=== PATIENT | male | born 1980 | race Hispanic/Latino ===

== ENCOUNTER 2024-08-30 23:23 | Emergency (ER) | payer SELFPAY ==
--- NOTE | 2024-08-30 23:28 | ED.ABDPAIN ---
HPI - Abdominal Pain General Chief Complaint: Abdominal Pain Stated Complaint: abd pain Time Seen by Provider: 08/30/24 23:27 History of Present Illness HPI narrative: Patient is a 43-year-old male without any significant past medical history comes into the ED from home for evaluation of epigastric pain/right upper quadrant abdominal pain ongoing intermittent for the past 3 weeks. He states that eating does make it worse, states that after he eats it does last for a proximally 5-6 hours that it resolves. He states that he has not seen anybody for this, but due to persistent symptoms decided come into the ED for further evaluation treatment. He denies any other symptoms at this time. Related Data Previous Rx's ?Medication ?Instructions ?Recorded ondansetron 4 mg disintegrating 4 mg PO Q8H 5 days #15 tabs 08/31/24 tablet oxycodone-acetaminophen 5 mg-325 1 tab PO Q8H PRN pain 3 days #9 08/31/24 mg tablet (Percocet) tabs Allergies Allergy/AdvReac Type Severity Reaction Status Date / Time Iodinated Contrast Media Allergy Intermediate tachycardia Verified 08/30/24 23:30 Review of Systems Review of Systems Narrative: General: Denies fever, chills, weight loss HEENT: Denies headache, eye drainage, eye irritation, head trauma, sore throat, voice change Cardiovascular: Denies any chest pain, palpitations, tachycardia Respiratory: Denies any shortness of breath, cough, wheeze, stridor GI/: Positive epigastric/right upper quadrant abdominal pain denies, nausea, vomiting, diarrhea, bright red blood per rectum, melanotic stools, urinary frequency, urinary retention, dysuria, hematuria MSK: Denies any joint pain, muscle pains, swelling Skin: Denies any rashes, lesions, discoloration Neuro: Denies any headache, lightheadedness, dizziness, fainting, weakness Psych: Denies SI/HI Patient History Social History Smoking Status: Former smoker Exam Narrative Exam Narrative: General: Cooperative, well-developed, not in acute distress HEENT: Normocephalic, atraumatic, PERRLA, normal sclera, eyelids normal Neck: Active full range of motion, atraumatic Chest: Normal to inspection, negative crepitus, no overlying erythema ecchymosis Respiratory: Normal respiratory effort, not in acute respiratory distress, clear to auscultation bilaterally negative cough, wheeze, tachypnea, rhonchi, rales Cardiology: Regular rate rhythm negative gallop, murmur, rubs GI/: Very mild tenderness to palpation of the epigastric region, negative Balderas's sign, soft, non rigid, normal to inspection, exam deferred MSK: Full active range of motion in all 4 extremities, atraumatic, no tenderness to palpation of any bony prominences Skin: No rashes or lesions noted Neuro: Alert awake oriented x3, moves all 4 extremities spontaneously, cranial nerves intact, able to answer all questions appropriately follows commands appropriately Psych: Cooperative, negative suicidal or homicidal ideations Initial Vital Signs Initial Vital Signs: Vital Signs Temperature 97.8 F 08/30/24 23:32 Pulse Rate 78 08/30/24 23:32 Respiratory Rate 16 08/30/24 23:32 Blood Pressure 156/90 H 08/30/24 23:32 Pulse Oximetry 99 08/30/24 23:32 Oxygen Delivery Method Room Air 08/30/24 23:32 Course Orders Ordered: ED Orders 08/30/24 23:29 Urinalysis and Microscopic Stat 08/30/24 23:31 EKG-12 Lead Stat 08/30/24 23:36 Consult to [facility] [place] - Pharmacy Grad Intern Stat 08/30/24 23:43 CT abdomen pelvis wo con Stat US abdomen limited Stat 08/30/24 23:44 CXR [XR chest 1V] Stat EKG-12 Lead Stat 08/30/24 23:45 Complete Blood Count AUTO DIFF Stat Comprehensive Metabolic Panel Stat Lipase Stat MAG [Magnesium] Stat Troponin & CK Cardiac Panel Stat Ondansetron HCl (Ondansetron 4 Mg/2 Ml Inj) 4 mg IV NOW PRN PRN Reason: Nausea And Vomiting Ondansetron HCl (Ondansetron 4 Mg Odt) 4 mg PO NOW PRN PRN Reason: Nausea And Vomiting Discontinued Medications Famotidine (Famotidine 20 Mg/2 Ml Vial) 20 mg IV NOW ONE Stop: 08/30/24 23:45 Last Admin: 08/31/24 00:03 Dose: Not Given Documented By: KACIE Sodium Chloride (Normal Saline 0.9%) 1,000 mls @ 1,000 mls/hr IV BOLUS ONE Stop: 08/31/24 00:27 Last Admin: 08/31/24 00:01 Dose: Not Given Documented By: KACIE Ondansetron HCl (Ondansetron 4 Mg/2 Ml Inj) 4 mg IV NOW ONE Stop: 08/30/24 23:45 Last Admin: 08/31/24 00:03 Dose: Not Given Documented By: KACIE Vital Signs Vital signs: Vital Signs - 8 hr 08/30/24 23:32 08/30/24 23:46 08/30/24 23:47 Temperature 97.8 F Pulse Rate 78 102 H Respiratory Rate 16 Blood Pressure 156/90 H 142/80 H Pulse Oximetry 99 100 Oxygen Delivery Method Room Air 08/30/24 23:47 08/31/24 00:00 08/31/24 00:00 Temperature Pulse Rate 99 H 92 H Respiratory Rate Blood Pressure 153/94 H Pulse Oximetry 99 99 Oxygen Delivery Method 08/31/24 00:30 08/31/24 00:30 Temperature Pulse Rate 98 H Respiratory Rate 17 Blood Pressure 153/85 H Pulse Oximetry 97 Oxygen Delivery Method MDM - Abdominal Pain Differential Diagnosis Differential diagnosis: Likely other (ACS, pneumonia, cholelithiasis, cholecystitis, electrolyte abnormality) Lab Data 08/30/24 23:45 08/30/24 23:45 Labs: Lab Results 08/30/24 08/30/24 Range/Units 23:29 23:45 WBC 7.9 (4.5-11.0) X10^3/uL RBC 5.35 (4.5-5.9) X10^6/uL Hgb 16.2 (13.5-17.5) g/dL Hct 47.9 (41-53) % MCV 89.6 (80-100) fL MCH 30.3 (26-34) PG MCHC 33.8 (30-36) % RDW 13.3 (11.6-14.8) % Plt Count 247 (150-400) X10^3/uL Neut % (Auto) 54.1 (50-75) % Lymph % (Auto) 36.4 (25-40) % [place] % (Auto) 7.3 (3-14) % Eos % (Auto) 1.8 L (2-4) % Baso % (Auto) 0.4 (0-2) % Neut # (Auto) 4300 (4879-9260) /uL Lymph # (Auto) 2900 (0870-9213) /uL [place] # (Auto) 600 (0-900) /uL Eos # (Auto) 100 (0-450) /uL Baso # (Auto) 0 (0-100) /uL Sodium 142 (137-145) mmol/L Potassium 4.2 (3.4-5.1) mmol/L Chloride 100 (98-107) mmol/L Carbon Dioxide 31 (22-32) mmol/L BUN 14 (9-20) mg/dL Creatinine 1.03 (0.66-1.25) mg/dL Estimated GFR > 60 (>60) mL/min BUN/Creatinine Ratio 13.6 (6-22) Glucose 116 H (70-99) mg/dL Calcium 9.9 (8.4-10.2) mg/dL Magnesium 2.3 (1.6-2.3) mg/dL Total Bilirubin 0.4 (0.2-1.3) mg/dL AST 24 (17-59) IU/L ALT 24 (<50) IU/L Alkaline Phosphatase 64 (38-126) U/L Total Creatine Kinase 65 (55-170) U/L Troponin I < 0.012 (0.01-0.034) ng/mL Total Protein 8.3 H (6.3-8.2) g/dL Albumin 5.3 H (3.5-5.0) g/dL Globulin 3.0 (1.7-4.1) g/dL Albumin/Globulin Ratio 1.8 (1.0-2.8) Lipase 257 (23-300) U/L Urine Color Yellow Urine Appearance Clear Urine pH 7.0 (4.5-8.0) Ur Specific [place] <=1.005 (1.000-1.035) Urine Protein Negative (Negative) Urine Glucose (UA) Negative (Negative) g/dL Urine Ketones Negative (NEGATIVE) Urine Occult Blood Negative (Negative) Urine Nitrate Negative (Negative) Urine Bilirubin Negative (NEGATIVE) Urine Urobilinogen 0.2 (0.2) E.U./dL Ur Leukocyte Esterase Negative (NEGATIVE) Urine RBC None seen (0-5/HPF) Urine WBC None seen (0-5/HPF) Ur Squamous Epith Cells None seen (0-5/HPF) Urine Bacteria None seen (None) Ur Culture Indicated? Cult not indicated Vol Urine Centrifuged 10ml (spun) Point of care testing: Urine Dip Bedside Urine Glucose Negative Bedside Urine Bilirubin - Negative Bedside Urine Ketone - Negative Urine Specific [place] 1.005 Bedside Urine Occult Blood - Negative Bedside Urine pH 6.5 Bedside Urine Protein - Negative Bedside Urine Urobilinogen - Negative Bedside Urine Nitrite - Negative Bedside Urine Leukocytes - Negative Esterase Imaging Data CT scan - abdomen/pelvis: Radiologist's Impression: [address] [address] [address] Scan Report Signed Patient: Ja Michaels MR#: [id number] : 1980 Acct:[id number] Age/Sex: 43 / M Date of Service: 08/30/24 Loc: ED Accession Number: [id number] Procedure: CT abdomen pelvis wo con Ordering Provider: Gil Petit D.O. PROCEDURE: CT ABDOMEN PELVIS WO CON INDICATIONS: epigastric/ RUQ abd pain TECHNIQUE: CT of the abdomen and pelvis was obtained without intravenous contrast. Coronal and sagittal reformats were performed. For radiation dose reduction, the following was used: automated exposure control, adjustment of mA and/or kV according to patient size. COMPARISON: None. FINDINGS: Image quality: Diagnostic. Lower Chest: No significant findings. ABDOMEN: Liver: No contour-deforming mass. Gallbladder: No radiopaque gallstones or wall thickening. Biliary ducts: No biliary dilation. Pancreas: No ductal dilation. Spleen: Size is within normal limits. Adrenal Glands: No adrenal nodules. Kidneys and Ureters: No hydronephrosis. No contour-deforming mass. Bilateral nonobstructing punctate nephrolithiasis. Stomach and Bowel: Normal colonic caliber, without significant wall thickening. Normal caliber appendix. Colonic diverticula without acute inflammation. Peritoneum: No abnormal intraperitoneal fluid. No free air. Ventral Wall: No significant hernia. Abdominal Nodes: No retroperitoneal or mesenteric adenopathy by size criteria. Vessels: Aorta and inferior vena cava are normal in size. PELVIS: Pelvic Organs: Unremarkable. Bladder: Unremarkable. Pelvic Nodes: No enlarged lymph nodes. Miscellaneous: No inguinal hernias are seen. Bones: No aggressive osseous abnormality. IMPRESSION: No acute abdominopelvic process. Colonic diverticulosis without CT evidence of acute diverticulitis. Normal caliber appendix. Bilateral nonobstructing punctate nephrolithiasis. No hydroureteronephrosis. Chest x-ray: Radiologist's Impression: [address] [address] XRay Report Signed Patient: Ja Michaels MR#: [id number] : 1980 Acct:[id number] Age/Sex: 43 / M Date of Service: 08/30/24 Loc: ED Accession Number: [id number] Procedure: XR chest 1V Ordering Provider: Gil Petit D.O. PROCEDURE: XR CHEST 1V INDICATIONS: Epigastric pain TECHNIQUE: One view of the chest was acquired. COMPARISON: None. FINDINGS: Surgical changes and devices: None. Lungs and pleura: Lungs are clear. No pleural effusions or pneumothorax. Mediastinum: Mediastinal contours appear normal. Heart size is normal. Bones and chest wall: No suspicious bony lesions. Overlying soft tissues appear unremarkable. IMPRESSION: No acute cardiopulmonary abnormality is seen. ECG Data Interpretation: EKG interpreted ED physician sinus 94 beats per minute QTC 440, normal axis nonspecific ST changes no STEMI MDM Narrative Medical decision making narrative: 43-year-old male without any pertinent past medical history presenting for epigastric/right upper quadrant abdominal pain intermittent ongoing for the past 3 weeks states pain is brought on by eating, states the pain will last for a proximally 5-6 hours and then subside states that ED by his any other symptoms at this time. Patient had lab work imaging urinalysis performed here in the emergency department. Urinalysis not consistent with acute urinary tract infection. Chest x-ray without any acute cardiopulmonary abnormality, CT scan without any acute findings, patient without any leukocytosis, Chem panel unremarkable, elevation in bilirubin or LFTs, troponin negative, EKG nonischemic in nature. Ultrasound did show cholelithiasis without cholecystitis, on Re evaluation patient improved patient is able tolerate p.o. liquids and solids, informed patient to follow up with PCP and general surgery given his cholelithiasis, he verbalized understanding of this and agrees to being discharged home with outpatient follow up Discharge Plan Departure Patient Disposition: Home Clinical Impression: Cholelithiasis Instructions: Gallstones (Alternative Therapy), DI for Gallstones Activity Restrictions/Additional Instructions: Please follow up with general surgery and PCP in outpatient setting for your gallbladder stones Please return to the emergency department immediately if you start having worsening pain fevers chills Please read the discharge instructions sheet carefully and bring all papers to all doctor follow-up visits, as it may contain information that your doctor may want to see. Disease processes change and evolve, if your symptoms worsen or if you develop any new symptoms that are concerning to you please return for evaluation. Your evaluation today does not show any evidence of any life-threatening/serious illnesses requiring admission to the hospital or surgery. Please follow-up with your doctor for re-evaluation in approximately 1 day. Seek immediate medical attention for any worrisome symptoms. *If you do not have a primary care provider please contact [facility] Resource line at [phone]. They will ask some questions about your medical history and help get you set up with a doctor in the community. Prescriptions: New oxycodone-acetaminophen [Percocet] 5-325 mg tablet 1 tab PO Q8H PRN (Reason: pain) 3 Days Qty: 9 0RF ondansetron 4 mg tablet,disintegrating 4 mg PO Q8H 5 Days Qty: 15 0RF Referrals: Malcolm Torres MD [Physician, General Surgery] Referral Note: Cholelithiasis Stand Alone Forms: Patient Portal/API
--- NOTE | 2024-08-30 23:31 | EKG_ITS ---
[facility] [address] [place] [address] Test Date: 2024-08-31 Pat Name: Ja Michaels Department: [facility] Room: Gender: Male Regional Director Of Finance: CHELY : 1980 Requested By: Order Number: [id number] Reading MD: Marty Alfredo MD Measurements Intervals [place] Rate: 94 P: 44 NV: 162 QRS: 31 QRSD: 100 T: 35 QT: 352 QTc: 440 Interpretive Statements Poor data quality, interpretation may be adversely affected Normal sinus rhythm Electronically Signed On 09-01-2024 7:09:20 PDT by Marty Alfredo MD
[2024-08-30 23:32] VITALS: BP 156/90; PULSE 78; RESP 16; TEMP 36.6; O2SAT 99; BMI 31.4
--- NOTE | 2024-08-30 23:43 | DI.CT.S_ITS ---
PROCEDURE: CT ABDOMEN PELVIS WO CON INDICATIONS: epigastric/ RUQ abd pain TECHNIQUE: CT of the abdomen and pelvis was obtained without intravenous contrast. Coronal and sagittal reformats were performed. For radiation dose reduction, the following was used: automated exposure control, adjustment of mA and/or kV according to patient size. COMPARISON: None. FINDINGS: Image quality: Diagnostic. Lower Chest: No significant findings. ABDOMEN: Liver: No contour-deforming mass. Gallbladder: No radiopaque gallstones or wall thickening. Biliary ducts: No biliary dilation. Pancreas: No ductal dilation. Spleen: Size is within normal limits. Adrenal Glands: No adrenal nodules. Kidneys and Ureters: No hydronephrosis. No contour-deforming mass. Bilateral nonobstructing punctate nephrolithiasis. Stomach and Bowel: Normal colonic caliber, without significant wall thickening. Normal caliber appendix. Colonic diverticula without acute inflammation. Peritoneum: No abnormal intraperitoneal fluid. No free air. Ventral Wall: No significant hernia. Abdominal Nodes: No retroperitoneal or mesenteric adenopathy by size criteria. Vessels: Aorta and inferior vena cava are normal in size. PELVIS: Pelvic Organs: Unremarkable. Bladder: Unremarkable. Pelvic Nodes: No enlarged lymph nodes. Miscellaneous: No inguinal hernias are seen. Bones: No aggressive osseous abnormality. IMPRESSION: No acute abdominopelvic process. Colonic diverticulosis without CT evidence of acute diverticulitis. Normal caliber appendix. Bilateral nonobstructing punctate nephrolithiasis. No hydroureteronephrosis. Approved by: Celeste Stevens M.D.,Ph.D. on 08/31/2024 at 0:52
--- NOTE | 2024-08-30 23:43 | DI.US.S_ITS ---
PROCEDURE: US ABDOMEN LIMITED INDICATIONS: RUQ abd pain TECHNIQUE: Real-time scanning was performed of the abdominal and retroperitoneal organs, with image documentation. COMPARISON: CT abdomen pelvis 08/30/2024. FINDINGS: Liver: Liver is normal in size and homogeneous in echotexture. There is increased hepatic echogenicity. Gallbladder: Cholelithiasis. No wall thickening. No pericholecystic edema. Negative sonographic Balderas's sign. Biliary ducts: Intrahepatic bile ducts are non-dilated. Extrahepatic bile duct caliber measures 5.4 mm. Normal is 6-7 mm or less in diameter, or 10 mm or less post-cholecystectomy. Pancreas: Not well visualized Miscellaneous: No free abdominal fluid. IMPRESSION: Cholelithiasis without sonographic evidence of acute cholecystitis. Increased hepatic echogenicity can be seen in the setting of attic steatosis. Recommend clinical correlation. Approved by: Celeste Stevens M.D.,Ph.D. on 08/31/2024 at 0:55
--- NOTE | 2024-08-30 23:44 | DI.RAD.S_ITS ---
PROCEDURE: XR CHEST 1V INDICATIONS: Epigastric pain TECHNIQUE: One view of the chest was acquired. COMPARISON: None. FINDINGS: Surgical changes and devices: None. Lungs and pleura: Lungs are clear. No pleural effusions or pneumothorax. Mediastinum: Mediastinal contours appear normal. Heart size is normal. Bones and chest wall: No suspicious bony lesions. Overlying soft tissues appear unremarkable. IMPRESSION: No acute cardiopulmonary abnormality is seen. Approved by: Celeste Stevens M.D.,Ph.D. on 08/31/2024 at 0:49
[2024-08-30 23:46] VITALS: PULSE 102; O2SAT 100
[2024-08-30 23:47] VITALS: BP 142/80; PULSE 99; O2SAT 99
[2024-08-30 23:51] LABS: Add Manual Diff / Slide Review NO; Basophils Absolute Auto 0 /uL (0-100); Basophils Percent Auto 0.4 % (0-2); Eosinophils Absolute Auto 100 /uL (0-450); Eosinophils Percent Auto 1.8 % (2-4); Hematocrit 47.9 % (41-53); Hemoglobin 16.2 g/dL (13.5-17.5); Lymphocytes Absolute Auto 2900 /uL (1100-4500); Lymphocytes Percent Auto 36.4 % (25-40); Mean Corpuscular HGB Conc 33.8 % (30-36); Mean Corpuscular Hemoglobin 30.3 PG (26-34); Mean Corpuscular Volume 89.6 fL (80-100); Monocytes Absolute Auto 600 /uL (0-900); Monocytes Percent Auto 7.3 % (3-14); Neutrophils Absolute Auto 4300 /uL (1500-7000); Neutrophils Percent Auto 54.1 % (50-75); Platelet Count 247 X10^3/uL (150-400); Red Blood Cell Count 5.35 X10^6/uL (4.5-5.9); Red Cell Distribution Width 13.3 % (11.6-14.8); White Blood Cell Count 7.9 X10^3/uL (4.5-11.0)
[2024-08-31] VITALS: BP 153/94; PULSE 92; O2SAT 99
[2024-08-31 00:02] LABS: Creatine Kinase 65 U/L (55-170)
--- NOTE | 2024-08-31 00:07 | PC.NURSE ---
pt refused medications and fluids, attempted to explain that the medication was to reduce the acid but pt stated he did not want to take anything right now. pt also stated he was not nauseated so he did not want anything for that and did not want any fluids at this time
[2024-08-31 00:15] LABS: Appearance Urine UA CLEAR; Bilirubin Urine UA NEGATIVE (NEGATIVE); Color Urine UA YELLOW; Glucose Urine UA NEGATIVE (Negative); Ketones Urine UA NEGATIVE (NEGATIVE); Leukocyte Esterase Urine UA NEGATIVE (NEGATIVE); Nitrite Urine UA NEGATIVE (Negative); Occult Blood Urine UA NEGATIVE (Negative); Protein Urine UA NEGATIVE (Negative); Specific Gravity Urine UA <=1.005 (1.000-1.035); Urobilinogen Urine UA 0.2 E.U./dL (0.2)
[2024-08-31 00:15] LABS: Troponin I < 0.012 ng/mL (0.01-0.034)
[2024-08-31 00:23] LABS: Alanine Aminotransferase 24 IU/L (<50); Albumin 5.3 g/dL (3.5-5.0); Albumin Globulin Ratio 1.8 (1.0-2.8); Alkaline Phosphatase 64 U/L (38-126); Aspartate Aminotransferase 24 IU/L (17-59); BUN Creatinine Ratio 13.6 (6-22); Bilirubin Total 0.4 mg/dL (0.2-1.3); Blood Urea Nitrogen 14 mg/dL (9-20); Calcium 9.9 mg/dL (8.4-10.2); Carbon Dioxide 31 mmol/L (22-32); Chloride 100 mmol/L (98-107); Estimated Glomerular Filt Rate > 60 mL/min (>60); Glucose 116 mg/dL (70-99); HEMOLYSIS < 15 (0-50); Lipase 257 U/L (23-300); Magnesium 2.3 mg/dL (1.6-2.3); Potassium 4.2 mmol/L (3.4-5.1); Sodium 142 mmol/L (137-145); Total Protein 8.3 g/dL (6.3-8.2)
[2024-08-31 00:24] LABS: Bacteria Urine None Seen; Culture Indicated Urine Cult Not Indicated; RBC Urine None Seen (0-5/HPF); Squamous Epithelial Cell Urine None Seen (0-5/HPF); Urine Volume 10mL (spun); WBC Urine None Seen (0-5/HPF)
[2024-08-31 00:30] VITALS: BP 153/85; PULSE 98; RESP 17; O2SAT 97
[2024-08-31 01:00] VITALS: BP 151/86; PULSE 99; RESP 23; O2SAT 93
== END 2024-08-31 01:10 | disposition home or self-care (01) ==
PROVIDERS: Emergency Provider Student in an Organized Health Care Education/Training Program
DX: K80.20 Calculus of gallbladder without cholecystitis without obstruction (principal)
CPT/HCPCS: 36415; 71045; 74176; 76705; 80053; 81001; 81003; 82550; 83690; 83735; 84484; 85025; 93005; 93010; 99283; 99284; J2405